=== PATIENT | female | born 1955 | race Caucasian/White ===

== ENCOUNTER → 2019-08-15 16:47 | Outpatient (CLI) | payer MEDICARE ==
[~2019-08-15 16:47] MED LIST: ASPIRIN EC81 M1 PO; CALCIUM 500 +1 EAC3 PO; CELEXA40 MG PO; COLACE100 MG PO; ELIQUIS2.5 MG PO; HYDROCODON-ACE1 EA10 PO; LIPITOR40 MG PO; METOPROLOL TART50 MG PO; NORVASC5 MG PO; SYNTHROID150 MCG PO
[2019-09-10 09:47] VITALS: BMI 32.9
== END | disposition home or self-care (01) ==
LOC: D.LABREF 16:47
PROVIDERS: ATTEND Orthopaedic Surgery
DX: M17.12 Unilateral primary osteoarthritis, left knee (principal)

== ENCOUNTER 2019-08-16 17:17 | Inpatient (IN) | payer MEDICARE, OTHER ==
[~2019-08-16] VITALS: Ht 170.2 cm; Wt 95.5 kg
[2019-09-04] MEDS ORDERED: ASPIRIN EC81 M1 PO (14:01)
[2019-09-04] MEDS ORDERED: CELEXA40 MG PO (14:01)
[2019-09-04] MEDS ORDERED: LIPITOR40 MG PO (14:01)
[2019-09-04] MEDS ORDERED: METOPROLOL TART50 MG PO (14:02)
[2019-09-04] MEDS ORDERED: SYNTHROID150 MCG PO (14:02)
[2019-09-04] MEDS ORDERED: CALCIUM 500 +1 EAC3 PO (15:24)
[2019-09-04] MEDS ORDERED: NORVASC5 MG PO (15:24)
[2019-09-05 11:08] LABS: BASOPHILS 0.7 % (0-2); EOSINOPHILS 3.4 % (0-7); HEMOGLOBIN 14.4 g/dL (12-16); IMMATURE GRANULOCYTES 0.1 % (0-5); LYMPHOCYTES 27.6 % (15-50); MCH 32.1 pg (26.0-34.0); MCHC 33.5 g/dL (31.0-37.0); MCV 95.8 fL (80.0-100.0); MEAN PLATELET VOLUME 10.9 fL (7.4-10.4); MONOCYTES 4.8 % (2-11); NEUTROPHILS 63.4 % (40-80); PLATELET COUNT 290 10x3/uL (130-400); RBC 4.49 10x6/uL (4.00-5.40); RDW 12.2 % (11.5-14.5); WBC 10.3 10x3/uL (4.8-10.8)
[2019-09-05 11:13] LABS: APTT 28.7 SECONDS (22.8-39.4); INR 0.97 (0.85-1.17); PROTIME 12.4 SECONDS (11.6-15.0)
[2019-09-05 11:14] LABS: ANION GAP 10.8 mmol/L (8-16); CALCIUM 9.1 mg/dL (8.5-10.1); CARBON DIOXIDE 31.3 mmol/L (21.0-32.0); POTASSIUM - SERUM 4.1 mmol/L (3.5-5.1)
[2019-09-05 12:23] LABS: APPEARANCE HAZY (CLEAR); BILIRUBIN NEGATIVE (NEGATIVE); COLOR YELLOW (YELLOW); GLUCOSE NEGATIVE (NEGATIVE); KETONE NEGATIVE (NEGATIVE); NITRITE NEGATIVE (NEGATIVE); PROTEIN NEGATIVE (NEGATIVE); SPECIFIC GRAVITY 1.025 (1.005-1.020)
[2019-09-05 12:26] LABS: RED CELLS - URINE RARE /hpf (0-5); WHITE CELLS - URINE 0-5 /hpf (NEGATIVE)
[2019-09-05 12:27] LABS: BACTERIA FEW /hpf (NEGATIVE); EPITHELIAL CELLS 0-5 /hpf (0-5); HYALINE CAST RARE /lpf (NONE SEEN); MUCUS >1+ /lpf (NONE SEEN)
[2019-09-10] VITALS (12 sets, daily range): BP systolic 86–126; BP diastolic 40–65; Ht 170.2 cm; Wt 95.5 kg
--- NOTE | 2019-09-10 08:30 | NUR ---
PLASMA BLADE SET TO 6/8 BOVIE PAD RIGHT THIGH [id number] EXP 11/22/20 LAMINAR FLOW NOT IN USE PREPPED LEFT LEG FROM TOURNIQUET TO TOES CIRCUMFERENTIALLY WITH HIBICLENS/ALCOHOL AND DRIED WITH STERILE TOWEL THEN PREPPED WITH CHLORAPREP. STERILE GOWN AND GLOVES WORN DURING PREP. TRAFFIC MONITORED IN AND OUT OF ROOM AND KEPT TO A MINIMUM
--- NOTE | 2019-09-10 09:35 | NUR ---
0920- XR AT BEDSIDE
--- NOTE | 2019-09-10 09:46 | NUR ---
PT ADMITTED TO 2207 VIA BED FROM RECOVERY. PT AWAKE AND ALERT X 4. RESP EVEN AND UNLABORED. 02 @ 2L NC IN PLACE. IV TO RIGHT HAND WITH 1/2 NS @ 100ML/HR INFUSING VIA PUMP. SITE WITHOUT REDNESS OR EDEMA. DRESSING C/D/I TO LEFT KNEE. EXTREMITY WARM TO TOUCH. MOVES TOES. PULSES PALPABLE. ORIENTED TO BED CONTROLS, CL AND ROOM. DENIES FURTHER NEEDS AT THIS TIME. CL WITHIN REACH. CONTINUE POC
--- NOTE | 2019-09-10 20:00 | NUR ---
ALERT RESTING IN BED CPM IN USE, CESAR WRAP INPLACE TO LEFT KNEE, IV INFUSING WITHOUT DIFFICULTY, DENIES PAIN OR NEEDS AT THIS TIME CALL LIGHT IN REACH SEE SHIFT ASSESSMENT
[2019-09-11] VITALS: BP 95/48
[2019-09-11 04:00] VITALS: BP 99/46
[2019-09-11 06:59] LABS: HEMATOCRIT 34.5 % (36.0-48.0); MCH 31.2 pg (26.0-34.0); MCHC 31.9 g/dL (31.0-37.0); MCV 97.7 fL (80.0-100.0); MEAN PLATELET VOLUME 11.5 fL (7.4-10.4); RBC 3.53 10x6/uL (4.00-5.40); RDW 12.7 % (11.5-14.5); WBC 12.6 10x3/uL (4.8-10.8)
--- NOTE | 2019-09-11 08:07 | NUR ---
AWAKE AND ALERT. ORIENTED X3. NO C/O AT THIS TIME. LUNGS ARE CLEAR BILATERALLY, NO COUGH NOTED. SKIN IS INTACT WTIHOUT REDNESS EXCEPT INCISION TO LEFT KNEE WHICH HAS A DRY INTACT DRESSING IN PLACE. ON CPM AT THIS TIME. IV TO RIGHT HAND IS PATENT WITHOUT REDNESS AT INSERTION SITE. DENIES NEEDS.
[2019-09-11 08:28] VITALS: BP 84/36
--- NOTE | 2019-09-11 09:50 | NUR ---
REQUESTED AND GIVNE ONE HYDROCODONE PO FOR C/O LEFT LEG PAIN LEVEL 5. WILL MONITOR. UP TO BSC. VOIDED 300CC CLEAR YELLOW URINE. AMBER CARE PER SELF. ASSISTED TO CHAIR AT BEDSIDE.
[2019-09-11 13:11] VITALS: BP 121/88
--- NOTE | 2019-09-11 15:23 | MORECARE ---
CASE MANAGEMENT DISCHARGE SUMMARY PATIENT: ADELA RIVAS UNIT: [id number] ADM DATE: 09/10/19 AGE: 63 : 53 SEX: F ROOM/BED: D.2208 AUTHOR: DENA JORDAN PHYSICIAN: REFERRING PHYSICIAN: ANDERSON BELLO MD DATE OF SERVICE: 09/11/19 Discharge Plan Patient Name: ADELA RIVAS Facility: [facility]:[place] : 1955 Planned Disposition: Home or Self Care Anticipated Discharge Date: Discharge Date: Expected LOS: Initial Reviewer: [email or web address] Initial Review Date: 09/10/2019 Generated: 09/11/19 4:23 pm External Providers External Provider: Momo ALBA Next Contact Date: Service Request Date: Service Type: Resolution: Reviewer: Comments: Patient Name: ADELA RIVAS Page [id number] at 1523 All edits/amendments must be made on the electronic document DICTATION DATE: 09/11/19 1523 DYE TUB TENDER: MILLIE 09/11/19 1523 RPT#: [id number] AL DATE: STATUS: ADM IN [facility] [address] [place] [address] END OF REPORT
--- NOTE | 2019-09-11 15:36 | MORECARE ---
CASE MANAGEMENT DISCHARGE SUMMARY PATIENT: ADELA RIVAS UNIT: [id number] ADM DATE: 09/10/19 AGE: 63 : 51 SEX: F ROOM/BED: D.6374 AUTHOR: DENA JORDAN PHYSICIAN: REFERRING PHYSICIAN: ANDERSON BELLO MD DATE OF SERVICE: 09/11/19 Discharge Plan Patient Name: ADELA RIVAS Facility: [facility]:[place] : 1955 Planned Disposition: Home or Self Care Anticipated Discharge Date: Discharge Date: Expected LOS: Initial Reviewer: [email or web address] Initial Review Date: 09/10/2019 Generated: 09/11/19 4:36 pm Comments DCP- Discharge Planning Updated by [email or web address]: Pallavi Fay on 09/11/19 2:[address] Patient Name: ADELA RIVAS Admission Status: Elective Accout number: [id number] Admission Date: 09-10-2019 : 1955 Admission Diagnosis: Attending: ANDERSON BELLO Current LOS: 1 Anticipated DC Date: Planned Disposition: Home or Self Care Primary Insurance: [employer] CHO[employer] PPO MCR ADVANT Discharge Planning Comments: CM met with patient to complete initial dc planning assessment. CM educated patient on the CM role and verbal consent given by patient to complete assessment. Patient lives at home with her spouse where she is independent with her care. At discharge patient plans to return home and feels this is a safe discharge. Her will be her driver license reviewing officer home. CM discussed availability of home health, rehab services, and medical equipment. She has had her walker delivered to the hospital already, that her other DME will be delivered by [employer] when discharged. I have set up her PT for at [place] [facility] on Sep 13 at 2:30pm. I spoke with Neeru. Patient denied known discharge needs at this time. CM will continue to follow and will assist as needed with dc plans/needs Head Porter: Pallavi Fay DCPIA - Discharge Planning Initial Assessment Updated by [email or web address]: Pallavi Fay on 09/11/19 3:24 pm * Is the patient Alert and Oriented? Yes * How many steps to enter\exit or inside your home? * PCP [facility] MARTINES AT [facility] * Pharmacy [facility] * Preadmission Environment Home with Family * ADLs Independent * Equipment Bedside Commode Rolling Walker * Other Equipment CPM * List name and contact numbers for known caregivers / representatives who currently or will assist patient after discharge: DANE (SPOUSE) [phone] * Verbal permission to speak to the caregivers and representatives has been obtained from the patient. N/A * Community resources currently utilized None * Additional services required to return to the preadmission environment? Yes * Can the patient safely return to the preadmission environment? Yes * Has this patient been hospitalized within the prior 30 days at any hospital? No Last DP export: 09/11/19 2:23 p Patient Name: ADELA RIVAS Page [id number] at 1536 All edits/amendments must be made on the electronic document DICTATION DATE: 09/11/191535 MOTOR VEHICLE ASSEMBLY SUPERVISOR: MILLIE 09/11/191535 RPT#: [id number] DC DATE: STATUS: ADM IN [facility] [address] [place] [address] END OF REPORT
[2019-09-11 16:48] VITALS: BP 102/43
--- NOTE | 2019-09-11 19:30 | NUR ---
RESTING QUIETLY IN BED. CPM IN PLACE. DENIES NEEDS. NO CHANGES NOTED.
[2019-09-11 20:00] VITALS: BP 114/42
[2019-09-12 04:00] VITALS: BP 129/56
--- NOTE | 2019-09-12 06:50 | NUR ---
ALERT AND ORIENTED, RESTING IN BED. NO C/O PAIN. NO S/S OF ACUTE DISTRESS NOTED. UP WITH ASSIST. POD #2 LTK, DRESSING C/D/I. IV TO RIGHT HAND, SL. SITE PATENT WITHOUT REDNESS OR SWELLING. CPM ON AT THIS TIME. DENIES ANY NEEDS AT THIS TIME. CALL LIGHT IN REACH. WILL CONTINUE TO MONITOR.
[2019-09-12 06:55] LABS: HEMATOCRIT 34.5 % (36.0-48.0); HEMOGLOBIN 10.9 g/dL (12-16); MCH 31.1 pg (26.0-34.0); MCHC 31.6 g/dL (31.0-37.0); MCV 98.6 fL (80.0-100.0); MEAN PLATELET VOLUME 11.3 fL (7.4-10.4); RBC 3.5 10x6/uL (4.00-5.40); RDW 12.9 % (11.5-14.5); WBC 10.5 10x3/uL (4.8-10.8)
[2019-09-12 08:13] VITALS: BP 127/67
[2019-09-12] MEDS ORDERED: ELIQUIS2.5 MG PO (08:43)
[2019-09-12] MEDS ORDERED: HYDROCODON-ACE1 EA10 PO (08:43)
[2019-09-12] MEDS ORDERED: COLACE100 MG PO (08:46)
--- NOTE | 2019-09-12 10:44 | NUR ---
I have reviewed this patient and I concur with the Shift Assessment completed by the Licensed Practical Nurse today this shift.
[2019-09-12 12:25] VITALS: BP 152/82
[2019-09-12 12:45] LABS: ANION GAP 14.6 mmol/L (8-16); CALCIUM 7.9 mg/dL (8.5-10.1); CARBON DIOXIDE 24.1 mmol/L (21.0-32.0); CREATININE - SERUM 1.4 mg/dL (0.6-1.3); POTASSIUM - SERUM 3.7 mmol/L (3.5-5.1)
--- NOTE | 2019-09-12 15:50 | NUR ---
DISCHARGED PATIENT HOME VIA WHEELCHAIR ACCOMPANIED BY FAMILY. DISCONTINUED IV, CATHETER TIP INTACT. WENT OVER DISCHARGE INSTRUCTIONS WITH PATIENT, VERBALIZED UNDERSTANDING. DRESSING TO LEFT KNEE NOT CHANGED, SENT HOME AQUACEL WITH PATIENT. DENIES ANYTHING FURTHER.
--- NOTE | 2019-09-13 09:12 | MORECARE ---
CASE MANAGEMENT DISCHARGE SUMMARY PATIENT: ADELA RIVAS UNIT: [id number] ADM DATE: 09/10/19 AGE: 63 : 51 SEX: F ROOM/BED: D.4300 AUTHOR: DENA JORDAN PHYSICIAN: REFERRING PHYSICIAN: ANDERSON BELLO MD DATE OF SERVICE: 09/13/19 Discharge Plan Patient Name: ADELA RIVAS Facility: [facility]:[place] : 1955 Planned Disposition: Home or Self Care Anticipated Discharge Date: Discharge Date: 09/12/2019 Expected LOS: Initial Reviewer: [email or web address] Initial Review Date: 09/10/2019 Generated: 09/13/19 10:12 am Comments DCP- Discharge Planning Updated by [email or web address]: Pallavi Fay on 09/11/19 2:[address] Patient Name: ADELA RIVAS Admission Status: Elective Accout number: [id number] Admission Date: 09-10-2019 : 1955 Admission Diagnosis: Attending: ANDERSON BELLO Current LOS: 1 Anticipated DC Date: Planned Disposition: Home or Self Care Primary Insurance: [employer] CHOICE PPO MCR ADVANT Discharge Planning Comments: CM met with patient to complete initial dc planning assessment. CM educated patient on the CM role and verbal consent given by patient to complete assessment. Patient lives at home with her spouse where she is independent with her care. At discharge patient plans to return home and feels this is a safe discharge. Her will be her charter bus driver home. CM discussed availability of home health, rehab services, and medical equipment. She has had her walker delivered to the hospital already, that her other DME will be delivered by [employer] when discharged. I have set up her PT for at [place] [facility] on Sep 13 at 2:30pm. I spoke with Neeru. Patient denied known discharge needs at this time. CM will continue to follow and will assist as needed with dc plans/needs Plastics Fitter: Pallavi Fay DCPIA - Discharge Planning Initial Assessment Updated by [email or web address]: Pallavi Fay on 09/11/19 3:24 pm * Is the patient Alert and Oriented? Yes * How many steps to enter\exit or inside your home? * PCP [facility]IN[facility] AT [facility] * [facility]acy [facility] * Preadmission Environment Home with Family * ADLs Independent * Equipment Bedside Commode Rolling Walker * Other Equipment CPM * List name and contact numbers for known caregivers / representatives who currently or will assist patient after discharge: DANE (SPOUSE) [phone] * Verbal permission to speak to the caregivers and representatives has been obtained from the patient. N/A * Community resources currently utilized None * Additional services required to return to the preadmission environment? Yes * Can the patient safely return to the preadmission environment? Yes * Has this patient been hospitalized within the prior 30 days at any hospital? No Last DP export: 09/11/19 2:36 p Patient Name: ADELA RIVAS Page 80912 at 0912 All edits/amendments must be made on the electronic document DICTATION DATE: 09/13/19911 PATENT ATTORNEY: MILLIE 09/13/19911 RPT#: [id number] DC DATE:09/12/19 STATUS: DIS IN [facility] [address] [place] [address] END OF REPORT
--- NOTE | 2019-09-20 08:37 | OP ---
PATIENT NAME: ADELA RIVAS MEDICAL RECORD: [id number] :[birth year] LOCATION:D.MS [id number] ADMISSION DATE:09/10/19 SURGEON: ANDERSON BELLO MD DATE OF OPERATION: 09/10/2019 PREOPERATIVE DIAGNOSIS: Degenerative arthritis, left knee. POSTOPERATIVE DIAGNOSIS: Degenerative arthritis, left knee. PROCEDURE: Left total knee arthroplasty. SURGEON: Anderson Bello MD ANESTHESIA: General. INTRAOPERATIVE COMPLICATIONS: None. SUMMARY OF PATHOLOGIC FINDINGS: The patient had extensive osteoarthritis, more medial based, but also patellofemoral arthritis. IMPLANTS USED: bookjam triathlon total knee arthroplasty system, size 4 with a size 11 polyethylene insert, size 4 tibial baseplate and a size 36 x 10 patella, this cemented. OPERATIVE SUMMARY IN DETAIL: After obtaining the appropriate preoperative orthopedic surgery consent as well as anesthetic consultation, evaluation and clearance, the patient was brought to the operating room and placed on the operating room table in supine position. After general laryngeal mask airway was administered, tourniquet was placed about the proximal aspect of left lower extremity. Left lower extremity was then prepped and draped in routine sterile fashion. The leg was elevated and exsanguinated, tourniquet was inflated to 350 mmHg. Routine midline incision was taken down for paramedian arthrotomy. Patella was everted, distal femur was exposed. Soft tissue excision was done in the usual fashion. This was followed by creation of intramedullary guide hole for intramedullary guided distal femoral cut. After cutting the distal femur, attention was turned to the proximal tibia, which was completely exposed for the soft tissue excision giving way to creating an intramedullary guide hole for intramedullary guided proximal tibial cut. After this, the appropriate measurements were taken. Chamfer cuts were made on the distal femur. Trials were put into place corresponding to the above final components. This was taken through range of motion and found to be stable in all planes. Final distal femoral preparation and proximal tibial preparation was followed by excision of the arthritic articular surface of the patella and it was prepared then for final implantation of the patellar component. Pulsatile lavage irrigation was followed by drying the bone ends completely. All components were cemented into place. All excess cement was removed and after the cement was allowed to harden, the knee was taken through a range of motion and found to be stable in all planes. A gram of vancomycin and a gram of tobramycin were placed in the patient's knee. This was followed by closure of the paramedian arthrotomy by Noe Currie APN as well as the skin by #1 Vicryl, 2-0 Vicryl and skin jeaneth. Sterile dressings were applied. The patient was awakened and taken to the recovery room in stable condition. All final needle and sponge counts were correct. TRANSINT:[id number] Voice Confirmation ID: [id number] DOCUMENT ID: [id number] OPERATIVE REPORT [id number] ADELA RIVAS MD, ANDERSON MUNIZ at 0837 CC: [id number] DICTATION DATE: 09/19/19 1307 BURR BENCH HAND: 09/19/19 1416 DIS IN 09/12/19 [place] [id number] [place] [address]
== END 2019-09-12 16:48 | disposition home or self-care (01) | DRG 470 ==
LOC: D.SDCHOLD 09-10 05:00 → D.MS 09-10 05:00 → D.SDCHOLD 09-10 07:30 → D.MS 09-10 09:40 → D.SDCHOLD 09-10 10:00 → D.MS 09-12 16:48
PROVIDERS: ADMIT Orthopaedic Surgery; ATTEND Orthopaedic Surgery
PROC: 0SRD0J9 Replacement of Left Knee Joint with Synthetic Substitute, Cemented, Open Approach (ICD-10-PCS; principal; 2019-09-10 07:30)
DX: M17.12 Unilateral primary osteoarthritis, left knee (principal); I10 Essential (primary) hypertension; E07.9 Disorder of thyroid, unspecified

== ENCOUNTER → 2019-11-22 08:12 | Outpatient (CLI) | payer MEDICARE, OTHER ==
[2019-09-10 09:47] VITALS: BMI 32.9
== END | disposition home or self-care (01) ==
LOC: D.LABREF 08:12
PROVIDERS: ATTEND Orthopaedic Surgery
DX: M17.11 Unilateral primary osteoarthritis, right knee (principal)